=== PATIENT | male | born 1945 | race Caucasian/White ===

== ENCOUNTER 2017-09-12 11:32 | Day surgery (SDC) | payer MEDICARE ==
[2017-09-12 13:15] VITALS: BMI 28.5
[2017-09-12] MEDS ORDERED: Lactated Ringer's 500 ML IV ONE (13:23)
[2017-09-12 13:27] VITALS: TEMP 96.8; O2SAT 99
[2017-09-12] MEDS ORDERED: Lidocaine 2% MPF (5 ml) Inj ONE (14:22)
[2017-09-12] MEDS ORDERED: Propofol 10 mg/ml Inj (20 ML) ONE (14:22)
[2017-09-12 14:58] VITALS: BP 127/66; PULSE 66; RESP 20
== END 2017-09-12 15:10 | disposition home or self-care (01) ==
LOC: H.ENDO 11:32
PROVIDERS: ATTEND Internal Medicine Gastroenterology
DX: R19.5 Other fecal abnormalities (principal); K57.30 Diverticulosis of large intestine without perforation or abscess without bleeding; E11.9 Type 2 diabetes mellitus without complications; E78.5 Hyperlipidemia, unspecified; I10 Essential (primary) hypertension
CPT/HCPCS: 45380; 82948; 88305; J2704; J7120

== ENCOUNTER 2017-10-10 10:23 | Day surgery (SDC) | payer MEDICARE ==
[2017-10-10] MEDS ORDERED: Lactated Ringer's 1,000 ML IV ONE (10:38)
[2017-10-10 11:05] VITALS: TEMP 97
[2017-10-10] MEDS ORDERED: Midazolam 2 MG/2 ML VIAL ONE (11:50)
[2017-10-10] MEDS ORDERED: Propofol 10 mg/ml Inj (20 ML) ONE (11:50)
[2017-10-10] MEDS ORDERED: Lidocaine 2% MPF (5 ml) Inj ONE (11:51)
[2017-10-10 12:13] VITALS: O2SAT 100
[2017-10-10 12:17] VITALS: BP 112/66; PULSE 62; RESP 13
== END 2017-10-10 12:10 | disposition home or self-care (01) ==
LOC: H.ENDO 10:23
PROVIDERS: ATTEND Internal Medicine Gastroenterology
DX: K30 Functional dyspepsia (principal); K44.9 Diaphragmatic hernia without obstruction or gangrene; K92.2 Gastrointestinal hemorrhage, unspecified; R19.5 Other fecal abnormalities
CPT/HCPCS: 43239; 82948; 88305; J2250; J2704; J7120